=== PATIENT | male | born 1960 | race Caucasian/White ===

== ENCOUNTER 2016-11-27 09:20 | Emergency (ER) | payer MEDICARE, MEDICAID ==
[~2016-11-27] VITALS: Ht 177.8 cm; Wt 96.2 kg
[2016-11-27] MEDS ORDERED: FAMOTIDINE 20 MG/2 ML VIAL IVP ONE (10:30)
[2016-11-27] MEDS ORDERED: ONDANSETRON PF 4 MG/2 ML VIAL. IV ONE (10:30)
[2016-11-27] MEDS ORDERED: IV NORMAL SALINE 500ML BAG 500 ML IV ONE (10:30)
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
[2016-11-27] MEDS: FENTANYL PF 100 MCG/2 ML VIAL. IV PRN ×2 (10:53→11:17)
[2016-11-27 11:06] LABS: BASO % 0 % (0-3); EOS % 2 % (0-3); HEMATOCRIT 43.2 % (39.0-53.0); HEMOGLOBIN 14.5 g/dL (13.0-17.5); LYMPH # 2.8 x10^3/uL (1.0-4.8); LYMPH % 31 % (24-48); MEAN CORPUSCULAR HEMOGLOBIN 29 pg (25-35); MEAN CORPUSCULAR HGB CONC 34 g/dL (31-37); MEAN CORPUSCULAR VOLUME 87 fL (79-100); MONO % 10 % (0-9); NEUT % 56 % (31-73); PLATELET COUNT 122 x10^3/uL (140-400); RED CELL DISTRIBUTION WIDTH 14.8 % (11.5-14.5)
[2016-11-27 11:17] LABS: INR 1.2 (0.8-1.1); PROTHROMBIN TIME PATIENT 14.3 SEC (11.7-14.0)
[2016-11-27 11:19] LABS: CALCIUM 9.4 mg/dL (8.5-10.1); CREATININE 0.8 mg/dL (0.7-1.3); GFR 100.7; POTASSIUM 3.4 mmol/L (3.5-5.1)
[2016-11-27 11:25] LABS: ALBUMIN 3.7 g/dL (3.4-5.0); DIRECT BILIRUBIN 0.2 mg/dL (0.0-0.2); TOTAL BILIRUBIN 0.9 mg/dL (0.2-1.0); TOTAL PROTEIN 7.2 g/dL (6.4-8.2)
[2016-11-27 11:30] VITALS: BP 97/74
[2016-11-27] MEDS ORDERED: IOHEXOL 300 MG/ML 75 ML VIAL IV ONE (11:30)
[2016-11-27] MEDS ORDERED: CONTRAST GIVEN MC PRN (11:30)
[2016-11-27 11:35] LABS: BARBITURATES NEG (NEG); BENZODIAZEPINES POS (NEG); CANNABINOIDS NEG (NEG); COCAINE POS (NEG); METHADONE NEG (NEG); OPIATES POS (NEG); PHENCYCLIDINE NEG (NEG)
[2016-11-27 11:36] LABS: ETHANOL, URINE NEG (NEG)
[2016-11-27 11:43] LABS: BILIRUBIN,URINE NEGATIVE (NEG); GLUCOSE,URINE NEGATIVE (NEG); NITRITE,URINE NEGATIVE (NEG); PH,URINE 7.5; PROTEIN,URINE NEGATIVE (NEG-TRACE); UROBILINOGEN,URINE 0.2 mg/dL (0.2 mg/dL)
[2016-11-27] MEDS ORDERED: LORAZEPAM 2 MG/ML VIAL IV ONE (11:45)
[2016-11-27 11:46] LABS: BACTERIA,URINE 0 /HPF (0-FEW); WBC,URINE 0 /HPF (0-4)
--- NOTE | 2016-11-27 11:47 | RAD ---
Indication: Right-sided abdominal pain. Axial imaging through the abdomen and pelvis was performed after the administration of intravenous contrast. No prior studies are available for comparison. The lung bases are clear apart from calcified granulomas. The liver does demonstrate a nodular contour, suspicious for cirrhosis. No discrete liver mass is identified. The gallbladder is unremarkable. The spleen is normal size. No ascites is identified. The pancreas is unremarkable. No adrenal mass is detected. The kidneys are unremarkable. The aorta is normal caliber. No central retroperitoneal or mesenteric lymphadenopathy is detected. There is moderate stool in the right colon. The small bowel is nondilated. Imaging through the pelvis demonstrates the bladder to be unremarkable. No definite pelvic lymphadenopathy is identified. Bony structures are nonacute. There are postop changes to the right hip. Impression: 1. Nodular contour to the liver, suspicious for cirrhosis. No discrete liver mass or signs of portal hypertension are identified. 2. Moderate stool in the right colon. 3. No acute feature in the abdomen or pelvis is identified.
== END 2016-11-27 12:50 | disposition home or self-care (01) ==
LOC: ER 09:20
DX: K74.60 Unspecified cirrhosis of liver (principal); R10.31 Right lower quadrant pain; F19.10 Other psychoactive substance abuse, uncomplicated; I10 Essential (primary) hypertension; G89.29 Other chronic pain; Z86.19 Personal history of other infectious and parasitic diseases; Z88.8 Allergy status to other drugs, medicaments and biological substances; Z88.1 Allergy status to other antibiotic agents
CPT/HCPCS: 36415; 74177; 80048; 80076; 81001; 83690; 85027; 85610; 85730; 96361; 96374; 96375; 99285; G0480; G0481; J2060; J2405; J3010; J7040; Q9967; S0028